=== PATIENT | male | born 1970 | race Caucasian/White ===

== ENCOUNTER 2017-07-09 10:20 | Emergency (ER) | payer OTHER ==
[~2017-07-09 10:20] MED LIST: AMLODIPINE BESY1 TAB PO; ASPIRIN ADULT L81 M1 PO; B121000 MCG/1 IM; CLONIDINE0.2 MG PO; FLONASE ALLERG9.9 ML NAS; GLIPIZIDE10 M2 PO; HUMALOG100 U/ML SC; HYDR25T PO; LANTUS100 U/ML SC; LISINOPRIL HCTZ1 TA1 PO; LOPRESSOR50 M1 PO; METOPROLOL TART50 M1 PO; NEURONTIN400 MG PO; NOVOLOG10 ML SC; PRAVACHOL80 M1 PO; VITAMIN D33000 UNIT PO; Zestril,Prinivi40 MG PO
== END 2017-07-09 12:43 | disposition home or self-care (01) ==
LOC: ED 10:20
DX: M25.561 Pain in right knee (principal); I10 Essential (primary) hypertension; E78.5 Hyperlipidemia, unspecified; E66.01 Morbid (severe) obesity due to excess calories; E11.8 Type 2 diabetes mellitus with unspecified complications; Z68.42 Body mass index [BMI] 45.0-49.9, adult; Z79.4 Long term (current) use of insulin; Z79.82 Long term (current) use of aspirin

== ENCOUNTER 2017-10-13 13:26 | Emergency (ER) | payer OTHER ==
[~2017-10-13] VITALS: Ht 195.5 cm; Wt 176.9 kg
[2017-10-13 15:20] LABS: BASO % 0.5 % (0.0-1.0); EOS # 0.2 10*3/uL (0.0-0.4); EOS % 2.6 % (1.0-4.0); HEMATOCRIT 42.9 % (42.0-52.0); HEMOGLOBIN 15.1 g/dl (14.0-18.0); LYMPH # 1.6 10*3/uL (1.3-4.4); LYMPH % 18.2 % (27.0-41.0); MEAN CELL VOLUME 80.9 fl (80.0-94.0); MEAN CORPUSCULAR HGB 28.5 pg (27.0-31.0); MEAN CORPUSCULAR HGB CONC 35.2 g/dl (33.0-37.0); MEAN PLATELET VOLUME 9.1 fl (9.6-12.3); MONO # 0.5 10*3/uL (0.1-1.0); MONO % 5.9 % (3.0-9.0); NEUT # 6.4 10*3/uL (2.3-7.9); NEUT % 72.6 % (47.0-73.0); PLATELET COUNT AUTOMATED 191 10*3/uL (130-400); RED CELL DISTRI WIDTH 13.2 % (0-14.5); WHITE BLOOD COUNT 8.8 10*3/uL (4.8-10.8)
[2017-10-13 15:29] LABS: INTERNATIONAL NORM RATIO 1.1 (2.0-3.5)
[2017-10-13 15:34] LABS: ALKALINE PHOSPHATASE 71 U/L (45-117); BUN 15 mg/dl (7-24); CHLORIDE 103 mmol/L (98-107); CREATININE 1.26 mg/dL (0.70-1.30); LIPASE 338 U/L (73-393); POTASSIUM 4.2 mmol/L (3.5-5.1); SGOT/AST 38 IU/L (3-35); SGPT/ALT 51 U/L (12-78); SODIUM 138 mmol/L (136-145); TOTAL PROTEIN 8.4 gm/dL (6.4-8.2); TROPONIN I < 0.015 ng/ml (<0.045)
[2017-10-13] MEDS ORDERED: ZITHROMAX250 MG PO (15:55)
[2017-10-13] MEDS ORDERED: TESSALON PERLE100 M1 PO (15:55)
[2017-10-13] MEDS ORDERED: PROAIR HFA8.5 GM INH (15:55)
== END 2017-10-13 16:01 | disposition home or self-care (01) ==
LOC: ED 13:26
PROVIDERS: Nurse Practitioner Family
DX: J20.9 Acute bronchitis, unspecified (principal); I10 Essential (primary) hypertension; E78.5 Hyperlipidemia, unspecified; E11.9 Type 2 diabetes mellitus without complications; Z79.82 Long term (current) use of aspirin; Z79.4 Long term (current) use of insulin; Z79.899 Other long term (current) drug therapy

== ENCOUNTER 2018-09-21 23:15 | Emergency (ER) | payer OTHER ==
[~2018-09-21] VITALS: Ht 193 cm; Wt 181.4 kg
--- NOTE | ~2018-09-21 | EKG ---
[place], [place] ELECTROCARDIOGRAM REPORT NAME: MAX SELLERS UNIT #: [id number] ROOM: DOCTOR: EPIPHANY DRAFT REPORT BIRTHDATE: [birth year] [facility] Test Date: 2018-09-22 Test Time: 00:00:31 Pat Name: MAX SELLERS Department: Room: Gender: Celebrity Manager: : 1970 Requested By: KRISHNA MYRICK Order Number: [id number] Reading MD: Gio Wilkinson MD Measurements Intervals [place] Rate: 88 P: 49 [place]: 194 QRS: 56 QRSD: 100 T: 15 QT: 363 QTc: 440 Interpretive Statements Sinus rhythm Electronically Signed On 09-23-2018 4:43:38 PST by Gio Wilkinson MD CM:EKGRPT:ELECTROCARDIOGRAM REPORT [id number] KRISHNA MYRICK MD EPIPHANY DRAFT REPORT KRISHNA MYRICK MD
[~2018-09-21 23:15] MED LIST changes: +PROAIR HFA8.5 GM INH; +TESSALON PERLE100 M1 PO; +ZITHROMAX250 MG PO
[2018-09-22 00:02] LABS: BASO % 0.4 % (0.0-1.0); EOS # 0.2 10*3/uL (0.0-0.4); EOS % 2.2 % (1.0-4.0); HEMATOCRIT 47.7 % (42.0-52.0); HEMOGLOBIN 16.7 g/dl (14.0-18.0); MEAN CELL VOLUME 83.7 fl (80.0-94.0); MEAN CORPUSCULAR HGB 29.3 pg (27.0-31.0); MONO # 0.6 10*3/uL (0.1-1.0); MONO % 5.9 % (3.0-9.0); NEUT # 7.1 10*3/uL (2.3-7.9); NEUT % 71.4 % (47.0-73.0); PLATELET COUNT AUTOMATED 200 10*3/uL (130-400); RED CELL DISTRI WIDTH 12.9 % (0-14.5)
[2018-09-22 00:12] LABS: ACT PARTIAL THROMBO TIME 24.8 SECONDS (20.8-31.5); INTERNATIONAL NORM RATIO 1.1 (2.0-3.5)
[2018-09-22 00:23] LABS: ALBUMIN 3.9 gm/dl (3.1-4.5); ALKALINE PHOSPHATASE 81 U/L (45-117); BUN 20 mg/dl (7-24); CHLORIDE 104 mmol/L (98-107); CREATININE 1.43 mg/dL (0.70-1.30); LIPASE 217 U/L (73-393); POTASSIUM 4.1 mmol/L (3.5-5.1); SGOT/AST 50 IU/L (3-35); SGPT/ALT 71 U/L (12-78); SODIUM 140 mmol/L (136-145)
[2018-09-22 00:26] LABS: TROPONIN I < 0.015 ng/ml (<0.045)
[2018-09-22 01:50] LABS: BILIRUBIN NEGATIVE (NEGATIVE); BLOOD NEGATIVE (NEGATIVE); CLARITY CLEAR (CLEAR); COLOR YELLOW (YELLOW); GLUCOSE NEGATIVE (NEGATIVE); KETONE NEGATIVE (NEGATIVE); LEUKO ESTERASE NEGATIVE (NEGATIVE); NITRITE NEGATIVE (NEGATIVE); PH 6.5 (5.0-9.0); UROBILINOGEN 0.2 E.U./dl (0.2-1.0)
[2018-09-22 02:58] LABS: BACTERIA TRACE; WBC 0-2 wbc/hpf (0-5)
[2018-09-22] MEDS ORDERED: FLONASE ALLERG9.9 ML NAS (03:25)
[2018-09-22] MEDS ORDERED: AMOXICILLIN500 M2 PO (03:25)
== END 2018-09-22 03:18 | disposition left against medical advice (07) ==
LOC: ED 23:15
PROVIDERS: Emergency Medicine Emergency Medical Services
DX: J01.90 Acute sinusitis, unspecified (principal); R07.89 Other chest pain; J44.9 Chronic obstructive pulmonary disease, unspecified; I10 Essential (primary) hypertension; E78.5 Hyperlipidemia, unspecified; E11.9 Type 2 diabetes mellitus without complications; E66.9 Obesity, unspecified; Z68.42 Body mass index [BMI] 45.0-49.9, adult; Z79.899 Other long term (current) drug therapy; Z79.82 Long term (current) use of aspirin; Z91.012 Allergy to eggs

== ENCOUNTER 2020-01-08 18:55 | Emergency (ER) | payer OTHER ==
[~2020-01-08] VITALS: Ht 292.1 cm; Wt 181.4 kg
[~2020-01-08 18:55] MED LIST changes: +AMOXICILLIN500 M2 PO
== END 2020-01-08 21:00 | disposition home or self-care (01) ==
LOC: ED 18:55
DX: L91.8 Other hypertrophic disorders of the skin (principal); E78.5 Hyperlipidemia, unspecified; E11.9 Type 2 diabetes mellitus without complications; I10 Essential (primary) hypertension; F17.200 Nicotine dependence, unspecified, uncomplicated; Z91.012 Allergy to eggs; Z79.899 Other long term (current) drug therapy; Z79.4 Long term (current) use of insulin

== ENCOUNTER 2020-06-26 18:09 | Emergency (ER) | payer OTHER ==
[~2020-06-26] VITALS: Wt 176.9 kg
[~2020-06-26 18:09] MED LIST changes: +LANTUS SOL100 UNIT/1 SC; -LANTUS100 U/ML SC
[2020-06-26] MEDS ORDERED: AVPAK AZITHROM250 MG PO ×2 (19:01)
[2020-06-26] MEDS ORDERED: FLONASE ALLERG9.9 ML NAS ×2 (19:01)
== END 2020-06-26 19:12 | disposition home or self-care (01) ==
LOC: ED 18:09
DX: J01.90 Acute sinusitis, unspecified (principal); Z20.828 Contact with and (suspected) exposure to other viral communicable diseases; Z91.012 Allergy to eggs; Z79.899 Other long term (current) drug therapy; Z79.4 Long term (current) use of insulin; Z79.82 Long term (current) use of aspirin

== ENCOUNTER 2020-07-03 12:32 | Inpatient (IN) | payer OTHER ==
[~2020-07-03] VITALS: Ht 193 cm; Wt 178.9 kg
[~2020-07-03 12:32] MED LIST changes: +AVPAK AZITHROM250 MG PO
[2020-07-03 12:41] VITALS: BP 154/74
[2020-07-03 13:21] LABS: BASO % 0.3 % (0.0-1.0); EOS % 0.1 % (1.0-4.0); LYMPH # 0.6 10*3/uL (1.3-4.4); LYMPH % 8.2 % (27.0-41.0); MEAN CELL VOLUME 83.5 fl (80.0-94.0); MEAN CORPUSCULAR HGB 29.2 pg (27.0-31.0); MEAN PLATELET VOLUME 9.5 fl (9.6-12.3); MONO # 0.6 10*3/uL (0.1-1.0); MONO % 7.1 % (3.0-9.0); NEUT # 6.5 10*3/uL (2.3-7.9); NEUT % 83.9 % (47.0-73.0); PLATELET COUNT AUTOMATED 170 10*3/uL (130-400); RED BLOOD COUNT 5.03 10*6/uL (4.50-5.90); RED CELL DISTRI WIDTH 12.3 % (0-14.5); WHITE BLOOD COUNT 7.8 10*3/uL (4.8-10.8)
--- NOTE | 2020-07-03 13:35 | NUR ---
MARANDA DRAWN ON 3L NC. SAMPLE OBTAINED FROM R RADIAL X 1 STICK. TOL. MASSEY.
[2020-07-03 13:36] LABS: ALBUMIN 2.9 gm/dl (3.1-4.5); ALKALINE PHOSPHATASE 66 U/L (45-117); BUN 26 mg/dl (7-24); CHLORIDE 100 mmol/L (98-107); CREATININE 1.25 mg/dL (0.70-1.30); LDH 234 U/L (87-241); POTASSIUM 3.5 mmol/L (3.5-5.1); SGOT/AST 84 IU/L (3-35); SGPT/ALT 48 U/L (12-78); SODIUM 135 mmol/L (136-145); TOTAL PROTEIN 7.5 gm/dL (6.4-8.2)
[2020-07-03 13:45] LABS: ABG BASE EXCESS 0.2 mmol/L (-2.0-2.0); ARTERIAL BLOOD GAS PH 7.416 (7.35-7.45)
[2020-07-03 14:12] VITALS: BP 156/72
[2020-07-03 14:45] VITALS: BP 121/71
[2020-07-03] MEDS ORDERED: LANTUS SOL100 UNIT/1 SC (15:05)
[2020-07-03] MEDS ORDERED: VICTOZA 2-0.6 MG/0.1 SC (15:06)
[2020-07-03] MEDS ORDERED: HUMALOG100 UNIT/1 SC (15:07)
[2020-07-03] MEDS ORDERED: CRESTOR10 M1 PO (15:08)
--- NOTE | 2020-07-03 15:09 | NUR ---
DR. Jacobson notified that med rec was updated.
--- NOTE | 2020-07-03 16:40 | NUR ---
Dr. Villa spoke with pt with myself and Kristian from respiratory present in room. Discussed pt hx, symptoms, labs, and new orders received. Instructed pt to lay prone whenever he can. Verbalized understanding.
[2020-07-03 16:58] LABS: ARTERIAL BLOOD GAS PH 7.426 (7.35-7.45)
--- NOTE | 2020-07-03 19:20 | NUR ---
PATIENT DIAPHORETIC AT THIS TIME CHECKED PATIENTS BG 221 PATIENT IS AFEBRILE AND DENIES ANY CHEST PAIN CURRENTLY. PATIENT VITALS STABLE SEE VITAL INTERVENTION.
[2020-07-03 20:00] VITALS: BP 126/63
[2020-07-03 20:07] LABS: ABG BASE EXCESS 0.6 mmol/L (-2.0-2.0); ARTERIAL BLOOD GAS PH 7.428 (7.35-7.45)
[2020-07-04] VITALS: BP 131/74
[2020-07-04 02:31] LABS: BILIRUBIN 1+ (Negative); BLOOD Negative (Negative); CLARITY Clear (Clear); COLOR Dark Yellow (Yellow); GLUCOSE Negative (Negative); KETONE Trace (Negative); LEUKO ESTERASE Trace (Negative); NITRITE Negative (Negative); SPECIFIC GRAVITY 1.025 (1.001-1.030)
[2020-07-04 02:44] LABS: BACTERIA 1+; EPITHELIAL CELLS 0-2; MUCOUS 1+
--- NOTE | 2020-07-04 04:36 | NUR ---
PATIENT HAS SLEPT THROUGH OUT THE NIGHT WITH BIPAP ON PATIENT TOOK IT OFF ONLY ONE TIME TO USE RESTROOM.
[2020-07-04 06:00] LABS: BASO % 0.1 % (0.0-1.0); HEMATOCRIT 45.9 % (42.0-52.0); LYMPH # 0.7 10*3/uL (1.3-4.4); LYMPH % 8.8 % (27.0-41.0); MEAN CELL VOLUME 85.2 fl (80.0-94.0); MEAN CORPUSCULAR HGB 29.3 pg (27.0-31.0); MEAN CORPUSCULAR HGB CONC 34.4 g/dl (33.0-37.0); MEAN PLATELET VOLUME 9.7 fl (9.6-12.3); MONO # 0.5 10*3/uL (0.1-1.0); MONO % 6.1 % (3.0-9.0); NEUT # 6.8 10*3/uL (2.3-7.9); NEUT % 84.3 % (47.0-73.0); PLATELET COUNT AUTOMATED 207 10*3/uL (130-400); RED BLOOD COUNT 5.39 10*6/uL (4.50-5.90); RED CELL DISTRI WIDTH 12.3 % (0-14.5); WHITE BLOOD COUNT 8.1 10*3/uL (4.8-10.8)
[2020-07-04 06:22] LABS: ACT PARTIAL THROMBO TIME 25.6 SECONDS (20.0-32.1); INTERNATIONAL NORM RATIO 1.1 (2.0-3.5)
[2020-07-04 06:42] LABS: ALBUMIN 2.9 gm/dl (3.1-4.5); ALKALINE PHOSPHATASE 73 U/L (45-117); CHLORIDE 104 mmol/L (98-107); CHOLESTEROL 168 mg/dL (<200); CPK 573 U/L (39-308); CREATININE 1.29 mg/dL (0.70-1.30); HDL CHOLESTEROL 26 mg/dl (40-60); LDH 210 U/L (87-241); POTASSIUM 4.3 mmol/L (3.5-5.1); SGOT/AST 68 IU/L (3-35); SGPT/ALT 46 U/L (12-78); SODIUM 137 mmol/L (136-145); TOTAL PROTEIN 7.7 gm/dL (6.4-8.2)
--- NOTE | 2020-07-04 06:45 | NUR ---
PATIENT VERY DIAPHORETIC BED CHANGED AND GOWN THIS MORNING PATIENT STATED THAT HE WAS A BIT DOZZY GETTING UP TO THE BATHROOM THIS MORNING AND WEAK. PATIENT STATED THAT HE FEELS OK. PATIENT TO THE RESTROOM AND BACK TO BED PATIENT WORE BIPAP ALL NIGHT LONG AND IS BACK ON AFTER GOING TO RESTROOM.PATIENT DID NOT PRONE HOWEVER EVEN AFTER I EDUCATED HIM ON THE IMPORTANCE OF PRONING.
[2020-07-04 06:50] LABS: LDL CHOLESTEROL 100 mg/dL (9-159); THYROID STIM HORMONE (HS) 0.157 uIU/ml (0.358-4.75); TRIGLYCERIDES 211 mg/dl (<150); VLDL CHOLESTEROL 42 mg/dL (6-40)
[2020-07-04 06:53] LABS: BUN 36 mg/dl (7-24)
[2020-07-04 07:15] LABS: VITAMIN D, 25-HYDROXY 29.3 ng/mL (30-100)
[2020-07-04 08:00] VITALS: BP 141/81
[2020-07-04 08:23] LABS: ABG BASE EXCESS -0.2 mmol/L (-2.0-2.0); ARTERIAL BLOOD GAS PH 7.419 (7.35-7.45)
[2020-07-04 12:00] VITALS: BP 136/88
[2020-07-04 16:00] VITALS: BP 136/69
--- NOTE | 2020-07-04 16:31 | NUR ---
PATIENT REMOVED FROM BIPAP PER THEIR REQUEST, FOR RESTROOM AND MEALS. WILL CALL WHEN NEEDED BACK ON BIPAP.
[2020-07-04 20:00] VITALS: BP 121/74
[2020-07-05] VITALS: BP 142/81
--- NOTE | 2020-07-05 01:52 | NUR ---
24HR CHART CHECK COMPLETED
[2020-07-05 06:47] LABS: BASO % 0.2 % (0.0-1.0); EOS % 0.2 % (1.0-4.0); HEMATOCRIT 47.3 % (42.0-52.0); LYMPH # 1.1 10*3/uL (1.3-4.4); LYMPH % 9.1 % (27.0-41.0); MEAN CELL VOLUME 84.8 fl (80.0-94.0); MEAN CORPUSCULAR HGB 29.2 pg (27.0-31.0); MEAN CORPUSCULAR HGB CONC 34.5 g/dl (33.0-37.0); MEAN PLATELET VOLUME 9.7 fl (9.6-12.3); MONO # 0.8 10*3/uL (0.1-1.0); MONO % 7.1 % (3.0-9.0); NEUT # 9.8 10*3/uL (2.3-7.9); NEUT % 82.1 % (47.0-73.0); PLATELET COUNT AUTOMATED 268 10*3/uL (130-400); RED BLOOD COUNT 5.58 10*6/uL (4.50-5.90); RED CELL DISTRI WIDTH 12.4 % (0-14.5); WHITE BLOOD COUNT 11.9 10*3/uL (4.8-10.8)
--- NOTE | 2020-07-05 07:44 | NUR ---
PT OFF BIPAP
[2020-07-05 08:00] VITALS: BP 139/80
[2020-07-05 08:04] LABS: ALBUMIN 3.2 gm/dl (3.1-4.5); ALKALINE PHOSPHATASE 87 U/L (45-117); BUN 41 mg/dl (7-24); CHLORIDE 105 mmol/L (98-107); CREATININE 1.29 mg/dL (0.70-1.30); LDH 298 U/L (87-241); SGOT/AST 88 IU/L (3-35); SGPT/ALT 65 U/L (12-78); SODIUM 139 mmol/L (136-145); TOTAL PROTEIN 7.2 gm/dL (6.4-8.2)
[2020-07-05 08:08] LABS: CPK 323 U/L (39-308)
--- NOTE | 2020-07-05 09:30 | NUR ---
PT AWAKE, ALERT, & ORIENTED X3. ABD OBESE, SOFT, NONTENDER. TRACE EDEMA VS OBESITY NOTED BLE. LUNGS CLEAR/DIMINISHED T/O. PT ON 4L NC AT THIS TIME. ALL MEDS TAKEN WITH NO DIFFICULTY. DENIES NEEDS AT THIS TIME. CALL LIGHT IN REACH.
[2020-07-05 12:00] VITALS: BP 117/67
[2020-07-05 14:00] LABS: ARTERIAL BLOOD GAS PH 7.43 (7.35-7.45)
[2020-07-05 16:05] VITALS: BP 121/70
[2020-07-05 20:00] VITALS: BP 137/77
--- NOTE | 2020-07-05 23:00 | NUR ---
PATIENT VOICED NO COMPLAINTS. NO OVERT DISTRESS NOTED, RESP ARE EASY AND REGULAR, NOTED PRODUCTIVE COUGH. PATIENT SWITCHED OVER TO O2 NC TO TAKE MEDICATION, TOLERATED WELL. BED IS LOCKED IN LOWEST POSITION, CALL LIGHT WITHIN REACH. PATIENT PLACED ON BIPAP WITH ORIGINAL SETTING, NO DISTRESS NOTED.
[2020-07-06] VITALS: BP 132/83
[2020-07-06 06:34] LABS: BASO % 0.3 % (0.0-1.0); EOS % 0.3 % (1.0-4.0); HEMATOCRIT 45.9 % (42.0-52.0); LYMPH # 1.3 10*3/uL (1.3-4.4); LYMPH % 11.5 % (27.0-41.0); MEAN CELL VOLUME 84.7 fl (80.0-94.0); MEAN CORPUSCULAR HGB 29.3 pg (27.0-31.0); MEAN CORPUSCULAR HGB CONC 34.6 g/dl (33.0-37.0); MEAN PLATELET VOLUME 9.5 fl (9.6-12.3); MONO # 0.8 10*3/uL (0.1-1.0); MONO % 7.5 % (3.0-9.0); NEUT # 8.8 10*3/uL (2.3-7.9); NEUT % 78.6 % (47.0-73.0); PLATELET COUNT AUTOMATED 299 10*3/uL (130-400); RED BLOOD COUNT 5.42 10*6/uL (4.50-5.90); RED CELL DISTRI WIDTH 12.3 % (0-14.5); WHITE BLOOD COUNT 11.1 10*3/uL (4.8-10.8)
[2020-07-06 06:51] LABS: ALBUMIN 3.1 gm/dl (3.1-4.5); ALKALINE PHOSPHATASE 85 U/L (45-117); BUN 37 mg/dl (7-24); CHLORIDE 104 mmol/L (98-107); LDH 218 U/L (87-241); POTASSIUM 3.7 mmol/L (3.5-5.1); SGOT/AST 86 IU/L (3-35); SGPT/ALT 84 U/L (12-78); SODIUM 138 mmol/L (136-145); TOTAL PROTEIN 7.6 gm/dL (6.4-8.2)
[2020-07-06 07:10] LABS: CPK 176 U/L (39-308)
[2020-07-06 08:00] VITALS: BP 138/84
[2020-07-06 09:20] LABS: ABG BASE EXCESS 0.7 mmol/L (-2.0-2.0); ARTERIAL BLOOD GAS PH 7.451 (7.35-7.45)
[2020-07-06 12:00] VITALS: BP 128/74
--- NOTE | 2020-07-06 12:08 | NUR ---
PATIENT IS IN COVID 19 ISOLATION, TESTED FOR USE OF HOME OXYGEN. DURING REST ON ROOM AIR HIT VITALS WERE HEART RATE:80 RESPIRATORY RATE:18 BLOOD PRESSURE:138/85 SPO2:95% DURING AMBULATION THE PATIENT SHOWED NO SIGNS OF SOB OR FATIGUE. SPO2 WAS 96% DURING AMBULATION WITH DECLINE. PATIENT DOES NOT QUALIFY FOR HOME OXYGEN.
--- NOTE | 2020-07-06 13:32 | NUR ---
Invoicing Machine Operator in to talk to patient. Patient states lives at HOME with MOTHER, FATHER, SON AND BROTHER. There are NO steps in the home. Physician: Lux CROUCH Pharmacy: [place] AND [facility] health services: NONE Patient's level of ADLs: INDEPENDENT Patient has working utilities: YES DME: [facility] Follow-up physician's appointment after d/c: WILL BE MADE BY HOSPITALIST NURSE DIRECTOR Does patient want to access PORTAL?: NO Discharge plan PT LIVES AT HOME WITH FAMILY AND IS INDEPENDENT IN HIS CARE. DENIES HE WILL HAVE ANY NEEDS ON DISCHARGE. PLAN IS TO RETURN HOME WILL CONTINUE TO FOLLOW. STATES HIS FATHER WILL PICK HIM UP.. MARIA EUGENIA HERMAN
[2020-07-06 16:00] VITALS: BP 131/77
[2020-07-06 20:00] VITALS: BP 167/72
[2020-07-07] VITALS: BP 142/79
[2020-07-07 06:31] LABS: HEMATOCRIT 46.2 % (42.0-52.0); MEAN CELL VOLUME 83.2 fl (80.0-94.0); MEAN CORPUSCULAR HGB 28.6 pg (27.0-31.0); MEAN CORPUSCULAR HGB CONC 34.4 g/dl (33.0-37.0); MEAN PLATELET VOLUME 9.1 fl (9.6-12.3); PLATELET COUNT AUTOMATED 309 10*3/uL (130-400); RED BLOOD COUNT 5.55 10*6/uL (4.50-5.90); WHITE BLOOD COUNT 11.1 10*3/uL (4.8-10.8)
[2020-07-07 06:53] LABS: PLATELET SUFFICIENCY NORMAL (NORMAL); TOTAL CELLS COUNTED 100 #CELLS
[2020-07-07 07:01] LABS: ALBUMIN 3.3 gm/dl (3.1-4.5); BUN 33 mg/dl (7-24); CHLORIDE 101 mmol/L (98-107); POTASSIUM 3.7 mmol/L (3.5-5.1); SODIUM 135 mmol/L (136-145)
[2020-07-07 07:06] LABS: ALKALINE PHOSPHATASE 81 U/L (45-117); CREATININE 1.19 mg/dL (0.70-1.30); LDH 187 U/L (87-241); SGOT/AST 78 IU/L (3-35); SGPT/ALT 103 U/L (12-78); TOTAL PROTEIN 7.4 gm/dL (6.4-8.2)
[2020-07-07 07:07] LABS: CPK 131 U/L (39-308)
[2020-07-07 08:00] VITALS: BP 132/79
[2020-07-07] MEDS ORDERED: MUCUS RELIEF600 MG PO (10:49)
[2020-07-07] MEDS ORDERED: DECADRON4 MG PO (10:49)
--- NOTE | 2020-07-07 12:20 | NUR ---
Discharge instructions reviewed with patient/family. Patient receptive and verbalizes understanding. Follow-up care arranged. Written instructions given to patient/family. VINCENT HYMAN
== END 2020-07-07 12:20 | disposition home or self-care (01) | DRG 177 ==
LOC: ED 12:32 → EDHOLD 13:27 → 4E 14:24
PROVIDERS: Family Medicine; Internal Medicine Critical Care Medicine; Student in an Organized Health Care Education/Training Program; ADMIT Internal Medicine; ATTEND Internal Medicine
PROC: 5A09357 Assistance with Respiratory Ventilation, Less than 24 Consecutive Hours, Continuous Positive Airway Pressure (ICD-10-PCS; principal; 2020-07-04)
PROC: 5A09357 Assistance with Respiratory Ventilation, Less than 24 Consecutive Hours, Continuous Positive Airway Pressure (ICD-10-PCS; 2020-07-05)
PROC: 5A09357 Assistance with Respiratory Ventilation, Less than 24 Consecutive Hours, Continuous Positive Airway Pressure (ICD-10-PCS; 2020-07-07)
DX: U07.1 COVID-19 (principal); J96.01 Acute respiratory failure with hypoxia; E43 Unspecified severe protein-calorie malnutrition; J18.9 Pneumonia, unspecified organism; E87.1 Hypo-osmolality and hyponatremia; D68.59 Other primary thrombophilia; Z68.42 Body mass index [BMI] 45.0-49.9, adult; I10 Essential (primary) hypertension; E78.5 Hyperlipidemia, unspecified; E11.65 Type 2 diabetes mellitus with hyperglycemia; E55.9 Vitamin D deficiency, unspecified; G47.33 Obstructive sleep apnea (adult) (pediatric); E66.01 Morbid (severe) obesity due to excess calories; Z83.3 Family history of diabetes mellitus; Z82.49 Family history of ischemic heart disease and other diseases of the circulatory system; Z91.012 Allergy to eggs; Z79.4 Long term (current) use of insulin; Z79.899 Other long term (current) drug therapy

== ENCOUNTER 2022-11-12 02:14 | Emergency (ER) | payer OTHER ==
[~2022-11-12] VITALS: Ht 182.8 cm; Wt 190.5 kg
[~2022-11-12 02:14] MED LIST changes: +CRESTOR10 M1 PO; +DECADRON4 MG PO; +HUMALOG100 UNIT/1 SC; +MUCUS RELIEF600 MG PO; +VICTOZA 2-0.6 MG/0.1 SC
== END 2022-11-12 18:02 ==
LOC: ED → EDBD 02:28 → ED 02:28
DX: I46.9 Cardiac arrest, cause unspecified (principal); Z88.0 Allergy status to penicillin